=== PATIENT | female | born 1980 | race Caucasian/White ===

== ENCOUNTER 2016-06-17 18:19 | Emergency (ER) | payer MEDICAID ==
[~2016-06-17] VITALS: Ht 162.6 cm; Wt 86.5 kg
[~2016-06-17 18:19] MED LIST: NO MEDS TAKEN
[2016-06-17 18:27] VITALS: Ht 162.6 cm; Wt 86.5 kg
[2016-06-17] MEDS ORDERED: ONDANSETRON (ODT) 4 MG TAB ODT STA (18:57)
[2016-06-17] MEDS ORDERED: ACETAMINOPHEN 325 MG TAB PO ONE (19:00)
--- NOTE | 2016-06-17 19:05 | ERD ---
ER Documentation Chief Complaint Date/Time DATE: 06/17/16 TIME: 19:00 Chief Complaint ABDOMINAL PAIN WITH NAUSEA, FEVER, DIARRHEA, DIZZINESS STARTING TODAY HPI This pleasant 35-year-old [place]er-speaking female reports sudden onset this morning of abdominal pain, diarrhea, fever and dizziness. Patient reports that she ate food that was prepared by the market last night and again this morning, reports that her children it same thing and they are not sick. Patient gave November 13, 2015 is currently breast-feeding reports that she is having a small amount of vaginal blood not sure if it is her menstruation. Patient has a temperature of 101.1 has not taken any [id number] medication for symptomatic relief. Denies burning or urgency with urination. ROS All systems reviewed and are negative except as per history of present illness. Medications Home Meds Active Scripts Ibuprofen* (Motrin*) 600 Mg Tab, 600 MG PO Q6, #30 TAB Prov:ABEL,TERESA 06/17/16 Ondansetron (Ondansetron Odt) 4 Mg Tab.rapdis, 4 MG PO Q6H Y for NAUSEA AND/OR VOMITING, #10 TAB Prov:ABEL,TERESA 06/17/16 Reported Medications [No Meds Taken] No Conflict Check 07/02/10 Allergies Allergies: Coded Allergies: No Known Drug Allergy (Verified Allergy, Mild, 07/02/10) PMhx/Soc History of Surgery: No Anesthesia Reaction: No Hx Neurological Disorder: No Hx Respiratory Disorders: No Hx Cardiac Disorders: No Hx Psychiatric Problems: No Hx Miscellaneous Medical Probl: No Hx Alcohol Use: No Hx Substance Use: No Hx Tobacco Use: No Smoking Status: Never smoker Physical Exam Vitals Vital Signs Date Time Temp Pulse Resp B/P Pulse Ox O2 Delivery O2 Flow Rate FiO2 06/17/16 18:27 101.1 90 20 120/76 99 Vitals stable, triage notes reviewed Physical Exam Const: No acute distress Head: Atraumatic Eyes: Normal Conjunctiva no jaundice or pallor, EOMI, PERRLA ENT: Normal External Ears, Nose and Mouth. Mucous membranes moist Neck: Resp: Cardio: Abd: Obese abdomen, soft, non-tympanic, tender to palpation generalized across all quadrants. No CVA tenderness Skin: Back: No midline or flank tenderness Ext: Neur: Awake and alert Psych: Normal Mood and Affect Results 24 hrs Laboratory Tests Test 06/17/16 19:35 Bedside Urine pH (LAB) 6.0 Bedside Urine Protein (LAB) Negative Bedside Urine Glucose (UA) Negative Bedside Urine Ketones (LAB) Negative Bedside Urine Blood 3+ Bedside Urine Nitrite (LAB) Negative Bedside Urine Leukocyte Esterase (L Negative Current Medications Medications (Trade) Dose Ordered Sig/Gerald Route PRN Reason Start Time Stop Time Status Last Admin Dose Admin Acetaminophen (Tylenol Tab) 650 mg ONCE ONCE PO 06/17/16 19:00 06/17/16 19:01 DC 06/17/16 20:05 Ondansetron HCl (Zofran Odt) 4 mg ONCE STAT ODT 06/17/16 18:57 06/17/16 18:59 DC 06/17/16 20:05 Ibuprofen (Motrin) 600 mg ONCE ONCE PO 06/17/16 20:30 06/17/16 20:31 DC 06/17/16 20:29 Procedures/MDM This pleasant 35-year-old female reports sudden onset of abdominal pain nausea fever diarrhea dizziness starting today. Simple ingestion of contaminated premade food from store. Patient reports that she had 3 diarrhea stools today, reports painful abdominal cramping, and fever. Denies vomiting, reports nausea. Patient is breast-feeding has a healthy 8-month-old baby that she is currently breast-feeding. Patient reports that she has started vaginal bleeding this month and is currently spotting. Cholecystitis, biliary colic, cholelithiasis, pancreatitis, not likely. Urinary tract infection, gastroenteritis, or viral illness is suspected. A urinalysis shows microscopic hematuria 3+ this coincides with patient's report of vaginal bleeding. No leukocytosis or nitrates. Patient received Zofran and Tylenol for nausea and fever reduction, patient reassessed after 60 minutes reports improvement in nausea, patient continues to have body aches and back pain. Patient will receive 600 mg ibuprofen prior to discharge. Patient patient reassessed after ibuprofen, reports improvement, slight nausea continues. Nurse practitioner reassess temperature 99.9 orally. I feel patient can be followed up in outpatient setting by primary care physician, instructed to return to emergency room for recurrence of pain, fever not responding to Tylenol Motrin, nausea, vomiting not responding to Zofran, or generally feeling worse than she does now. I feel the patient is stable for discharge at this time. I have discussed results, examination findings, the treatment plan with the patient and family present prior to discharge. Indications for emergent reevaluation, side effects of medication were also discussed. All questions were answered. Patient verbalizes understanding and agrees with plan of care. Departure Diagnosis: Primary Impression: Gastritis Gastritis type: unspecified gastritis Chronicity: acute Gastritis bleeding : without bleeding Qualified Code: K29.00 - Acute gastritis without hemorrhage, unspecified gastritis type Additional Impression: Nonspecific syndrome suggestive of viral illness Condition: Good Patient Instructions: Viral Syndrome (Adult) [facility] Thank you for for coming to [facility] for your care today. Please ask your nurse or provider if you have questions about your care today and do not leave until all your questions have been answered. Please use any medications given as directed and follow-up with your doctor (or the doctor you were referred to) in the next 2-3 days. If you do not have a primary care doctor you may follow [place] [facility] [place] You may also use motrin and tylenol as needed for fever and/or pain unless instructed otherwise by your provider or nurse. Indications for more urgent follow-up have been discussed, but you may return to the Emergency Department at ANY time for any worrisome or worsening symptoms. If you have abdominal pain, please know that no test or exam you received is perfect and you should follow up within 8 hours for continued pain. If you had any imaging studies today, such as an X-Ray or CT Scan, these studies will be reviewed later by a radiologist. You will be called if there are important findings that were not identified today, so make sure the contact information you provided at registration is correct. If you received any narcotic pain control medicine today, such as Vicodin, Morphine or Dilaudid, your coordination and judgment may be affected for a number of hours. Please do not drive or operate heavy machinery, and you may want someone to assist you at home. If you were given a prescription for narcotic medication, be aware that it is very addictive- use sparingly and only if necessary. TERESA ROMAN Jun 17, 2016 19:04
[2016-06-17 19:36] LABS: URINE BLOOD (Dip) POC 3+ (NEGATIVE)
[2016-06-17] MEDS ORDERED: ONDA4TAB14 PO (20:09)
[2016-06-17] MEDS ORDERED: IBUP-1542 PO (20:09)
[2016-06-17] MEDS ORDERED: IBUPROFEN 600 MG TAB PO ONE (20:30)
[2016-06-17 20:59] VITALS: BP 118/68; PULSE 98; RESP 20; TEMP 98.9
== END 2016-06-17 21:00 | disposition home or self-care (01) ==
LOC: FTE 18:19
DX: K29.00 Acute gastritis without bleeding (principal); R11.0 Nausea
CPT/HCPCS: 81003; Z7502; Z7610; 99283